=== PATIENT | male | born 1970 | race African-American/Black ===

== ENCOUNTER 2021-03-06 09:23 | Emergency (ER) | payer BC ==
--- NOTE | 2021-03-06 11:31 | RAD REPORT ---
EXAM DESCRIPTION: RAD - Chest Single View - 03/06/2021 11:11 am CLINICAL HISTORY: PAIN, cough, patient indicates COVID positive status COMPARISON: None TECHNIQUE: AP portable chest image was obtained 03/06/2021 11:11 am . FINDINGS: Overlying chest soft tissues increase lung base density. True mid and lower lung field air space disease is evident in a peripheral distribution. No failure or volume overload findings. Heart and vasculature are normal. No measurable pleural effusion and no pneumothorax. No acute bony abnorma lity seen. No acute aortic findings suspected. IMPRESSION: Based on findings and history, patient has a mild bilateral COVID-19 pneumonia.
[2021-03-06 11:34] LABS: Absolute Lymphocytes (CBC) 0.6 K/uL (0.7-4.9); Basophils % 1.1 % (0-1.3); Hematocrit 46.4 % (39.6-49.0); Lymphocytes % 9.7 % (15.3-44.8); MPV 9.1 fL (7.6-11.3); RBC Red Blood Cell Count 5.93 M/uL (4.33-5.43)
[2021-03-06 11:53] LABS: ALT/SGPT 115 U/L (12-78); AST/SGOT 73 U/L (15-37); Albumin 3.1 g/dL (3.4-5.0); Alkaline Phosphatase 66 U/L (45-117); BUN Blood Urea Nitrogen 12 mg/dL (7-18); Bicarbonate 27 mmol/L (21-32); Bilirubin Direct 0.5 mg/dL (0-0.2); Bilirubin Total 0.9 mg/dL (0.2-1.0); Glucose Level 101 mg/dL (74-106); Magnesium 2.2 mg/dL (1.8-2.4); NT PRO-BNP 36 pg/mL (<125); Potassium 4.2 mmol/L (3.5-5.1); Protein, Total 8.4 g/dL (6.4-8.2); Sodium Level 135 mmol/L (136-145); Troponin (Emerg Dept Use Only) < 0.02 ng/mL (0.0-0.045)
[2021-03-06 12:07] LABS: Protime INR 1.2
--- NOTE | 2021-03-06 12:22 | ER ---
Nurse's Notes [facility] Name: Sy Richard Age: 50 yrs Sex: Male : 1970 Arrival Date: 03/06/2021 Time: 09:27 Bed Waiting Private MD: Diagnosis: Coronavirus infection, unspecified;Pneumonia due to SARS-associated coronavirus Presentation: 03/06 10:12 Chief complaint: Patient states: Tested positive for covid 2 weeks ago and breathing ss and cough seems to be getting worse, especially at night. Coronavirus screen: congestion, cough unrelated to allergies, Client presents with at least one sign or symptom that may indicate coronavirus-19. Standard/surgical mask placed on the client. Provider contacted for isolation considerations. Ebola Screen: Patient denies exposure to infectious person. Patient denies travel to an Ebola-affected area in the 21 days before illness onset. Initial Sepsis Screen: Does the patient meet any 2 criteria? No. Patient's initial sepsis screen is negative. Does the patient have a suspected source of infection? No. Patient's initial sepsis screen is negative. Risk Assessment: Do you want to hurt yourself or someone else? Patient reports no desire to harm self or others. Onset of symptoms was February 21, 2021. 10:12 Method Of Arrival: Ambulatory ss 10:12 Acuity: EVIE 2 ss Historical: - Allergies: 10:27 No Known Allergies; ss - Home Meds: 10:27 None [Active]; ss - PMHx: 10:27 Hypertensive disorder; ss - PSHx: 10:27 None; ss - Immunization history:: Client reports having NOT received the Covid vaccine. - Social history:: Smoking status: Patient denies any tobacco usage or history of. Vital Signs: 10:12 Pulse 122; Resp 23; Temp 99.1(TE); Pulse Ox 92% on R/A; Weight 117.93 kg; Height 6 ft. ss 3 in. (190.50 cm); Pain 0/10; 10:27 BP 154 / 111; ss 12:50 Pulse 117; Pulse Ox 95% on R/A; ss 10:12 Body Mass Index 32.50 (117.93 kg, 190.50 cm) ss ED Course: :27 Patient arrived in ED. mr 10:26 Triage completed. ss 10:27 Arm band placed on right wrist. ss 10:58 Fili Lovell MD is Attending Physician. tw4 11:11 XRAY Chest (1 view) In Process Unspecified. EDMS 12:50 Monitoring unavailable in ER [facility]. ss 13:06 No provider procedures requiring assistance completed. Patient did not have IV access ss during this emergency room visit. Administered Medications: No medications were administered Outcome: 12:22 Discharge ordered by . tw4 13:00 Discharged to home via wheelchair. 13:00 Condition: good 13:00 Discharge instructions given to patient, Instructed on discharge instructions, follow up and referral plans. Demonstrated understanding of instructions, follow-up care, Prescriptions given X 3. 13:07 Patient left the ED. ss Signatures: Dispatcher [employer] EDDE Shannan Gandara Shelby, RN RN Fili Lovell MD MD tw4
--- NOTE | 2021-03-06 12:22 | EDPHYS ---
Physician Documentation [facility] Name: Sy Richard Age: 50 yrs Sex: Male : 1970 Arrival Date: 03/06/2021 Time: 09:27 Bed Waiting Private MD: ED Physician Fili Lovell HPI: 03/06 12:14 This 50 yrs old Black Male presents to ER via Ambulatory with complaints of Chest Pain, tw4 Cough. 12:14 This 50 yrs old Black Male presents to ER via Ambulatory with complaints of SOB Cough. tw4 12:14 The patient or guardian reports chest pain that is located primarily in the anterior tw4 chest wall. 12:14 The patient has shortness of breath at rest. Onset: The symptoms/episode began/occurred tw4 today. Duration: The symptoms are continuous. The patient's shortness of breath has no apparent modifying factors. Severity of symptoms: At their worst the symptoms were moderate in the emergency department the symptoms are unchanged. The patient has not experienced similar symptoms in the past. 12:19 Patient tested Covid +1-week. tw4 Historical: - Allergies: 10:27 No Known Allergies; ss - Home Meds: 10:27 None [Active]; ss - PMHx: 10:27 Hypertensive disorder; ss - PSHx: 10:27 None; ss - Immunization history:: Client reports having NOT received the Covid vaccine. - Social history:: Smoking status: Patient denies any tobacco usage or history of. ROS: 12:19 Constitutional: Negative for fever, chills, and weight loss, Abdomen/GI: Negative for tw4 abdominal pain, nausea, vomiting, diarrhea, and constipation, Back: Negative for injury and pain, MS/Extremity: Negative for injury and deformity, Skin: Negative for injury, rash, and discoloration, Neuro: Negative for headache, weakness, numbness, tingling, and seizure. 12:19 Cardiovascular: Positive for chest pain, Negative for edema, orthopnea, palpitations, paroxysmal nocturnal dyspnea. 12:19 Respiratory: Positive for cough, shortness of breath. Exam: 12:19 Constitutional: This is a well developed, well nourished patient who is awake, alert, tw4 and in no acute distress. Head/Face: Normocephalic, atraumatic. Chest/axilla: Normal chest wall appearance and motion. Nontender with no deformity. No lesions are appreciated. Cardiovascular: Regular rate and rhythm with a normal S1 and S2. No gallops, murmurs, or rubs. Normal PMI, no JVD. No pulse deficits. Respiratory: Lungs have equal breath sounds bilaterally, clear to auscultation and percussion. No rales, rhonchi or wheezes noted. No increased work of breathing, no retractions or nasal flaring. Abdomen/GI: Soft, non-tender, with normal bowel sounds. No distension or tympany. No guarding or rebound. No evidence of tenderness throughout. Back: No spinal tenderness. No costovertebral tenderness. Full range of motion. MS/ Extremity: Pulses equal, no cyanosis. Neurovascular intact. Full, normal range of motion. Neuro: Awake and alert, GCS 15, oriented to person, place, time, and situation. Cranial nerves II-XII grossly intact. Motor strength 5/5 in all extremities. Sensory grossly intact. Cerebellar exam normal. Normal gait. Vital Signs: 10:12 Pulse 122; Resp 23; Temp 99.1(TE); Pulse Ox 92% on R/A; Weight 117.93 kg; Height 6 ft. ss 3 in. (190.50 cm); Pain 0/10; 10:27 BP 154 / 111; ss 12:50 Pulse 117; Pulse Ox 95% on R/A; ss 10:12 Body Mass Index 32.50 (117.93 kg, 190.50 cm) ss MDM: 12:19 Data reviewed: vital signs, nurses notes, lab test result(s), cardiac enzymes, CBC, tw4 hepatic panel, radiologic studies, plain films. Data interpreted: Pulse oximetry: Interpretation: normal. Counseling: I had a detailed discussion with the patient and/or guardian regarding: the historical points, exam findings, and any diagnostic results supporting the discharge/admit diagnosis, lab results, radiology results. Special discussion: Based on the patient's history, exam, and Dx evaluation, there is no indication for emergent intervention or inpatient Tx. It is understood by the patient/guardian that if the Sx's persist or worsen they need to return immediately for re-evaluation. I discussed with the patient/guardian in detail that at this point there is no indication for admission to the hospital. It is understood, however, that if the symptoms persist or worsen the patient needs to return immediately for re-evaluation. ED course: Patient resting comfortably outside in the emergency department. Patient's active saturations were between 92 and 93. Patient appears comfortable. Patient's laboratory evaluation was relatively unremarkable. Chest x-ray shows signs consistent with Covid pneumonia. Patient will receive medications for an outpatient and will follow up as needed should symptoms worsen... 12:22 Patient medically screened. 03/06 10:46 Order name: Basic Metabolic Panel 03/06 10:46 Order name: CBC with Diff; Complete Time: 12:04 03/06 12:04 Interpretation: Normal except: RBC 5.93; MCV 78.2; MCH 25.3; LYMA 0.6; LYM% 9.7; JOSE DE JESUS% tw4 79.7. 03/06 10:46 Order name: LFT's; Complete Time: 12:04 03/06 12:04 Interpretation: Normal except: ALT 115; AST 73; BILID 0.5; TP 8.4; ALB 3.1; A/G 0.6; tw4 GLOB 5.3. 03/06 10:46 Order name: Magnesium; Complete Time: 12:04 03/06 12:04 Interpretation: Within normal limits: MG 2.2. 03/06 10:46 Order name: NT PRO-BNP; Complete Time: 12:04 03/06 12:04 Interpretation: Within normal limits: NT PRO-BNP 36. 03/06 10:46 Order name: PT-INR; Complete Time: 12:27 03/06 10:46 Order name: Troponin (emerg Dept Use Only); Complete Time: 12:04 03/06 12:04 Interpretation: Within normal limits: TROPED < 0.02. 03/06 10:46 Order name: XRAY Chest (1 view); Complete Time: 12:04 03/06 12:12 Interpretation: Abnormal. 03/06 10:46 Order name: EKG; Complete Time: 10:47 03/06 10:46 Order name: Cardiac monitoring 03/06 10:46 Order name: EKG - Nurse/Tech 03/06 10:46 Order name: IV Saline Lock 03/06 10:47 Order name: Basic Metabolic Panel; Complete Time: 12:04 EDKY 03/06 12:12 Interpretation: Normal except: NA 135; GFR 85. tw4 03/06 10:46 Order name: Labs collected and sent tw4 03/06 10:46 Order name: O2 Per Protocol tw4 03/06 10:46 Order name: O2 Sat Monitoring tw4 Administered Medications: No medications were administered Disposition Summary: 03/06/21 12:22 Discharge Ordered Location: Home tw4 Condition: Stable tw4 Diagnosis - Coronavirus infection, unspecified tw4 - Pneumonia due to SARS-associated coronavirus tw4 Followup: tw4 - With: Private Physician - When: Upon discharge from the Emergency Department - Reason: Recheck today's complaints, Continuance of care, Re-evaluation by your physician Discharge Instructions: - Discharge Summary Sheet tw4 - Upper Respiratory Infection, Adult tw4 - Viral Respiratory Infection, [id number] tw4 - COVID-19 tw4 - COVID-19 Frequently Asked Questions tw4 Forms: - Medication Reconciliation Form tw4 - Thank You Letter tw4 - Antibiotic Education tw4 - Prescription Opioid Use tw4 Prescriptions: - ProAir HFA 90 mcg/actuation Inhalation HFA aerosol inhaler - inhale 2 puff by INHALATION route 1-3 times daily; 1 Inhaler; Refills: 0, tw4 Product Selection Permitted - Zithromax Z-Marcelino 250 mg Oral Tablet - take 1 tablet by ORAL route as directed for 5 days Day 1 - take two (2) tablets tw4 one time. Day 2, 3, 4 , 5 take one (1) tablet once daily.; 6 tablet; Refills: 0, Product Selection Permitted - Medrol (Marcelino) 4 mg Oral Tablets, Dose Pack - take 1 tablet by ORAL route as directed - follow package instructions; 1 tw4 packet; Refills: 0, Product Selection Permitted - Zithromax 500 mg Oral Tablet - take 1 tablet by ORAL route once daily for 5 days; 5 tablet; Refills: 0, tw4 Product Selection Permitted Signatures: Dispatcher [employer] EDKY Nereida Juarez RN RN Fili Evangelista MD MD tw4 Corrections: (The following items were deleted from the chart) 10:56 10:28 Chest Pa And Lat (2 Views)+[email or web address] ordered. [facility] EDKY 12:12 12:04 Normal except: NA 135. tw4 tw4
== END 2021-03-06 13:07 | disposition home or self-care (01) ==
LOC: ER 09:23
DX: U07.1 COVID-19 (principal); J12.82 Pneumonia due to coronavirus disease 2019; I10 Essential (primary) hypertension
CPT/HCPCS: 36415; 71045; 80048; 80076; 83735; 83880; 84484; 85025; 85610; 99283